=== PATIENT | female | born 1950 | race Caucasian/White ===

== ENCOUNTER 2021-11-14 10:13 | Outpatient (REF) | payer OTHER, MEDICARE, SELFPAY ==
[2021-11-14 13:18] LABS: MANUAL DIFF FLAG NO
[2021-11-14 13:28] LABS: Basophils Absolute Auto 0.1 X10*3/uL (0.0-0.2); Basophils Percent Auto 0.8 % (0-2); Eosinophils Absolute Auto 0.2 X10*3/uL (0.0-0.4); Eosinophils Percent Auto 3.5 % (0-4); Hematocrit 39.2 % (37.0-47.0); Imm Gran Abs Auto 0.01 X10*3/uL (0.00-0.03); Imm Gran Pct Auto 0.2 % (0.0-0.4); Lymphocytes Absolute Auto 2.1 X10*3/uL (1.2-4.9); Lymphocytes Percent Auto 32.2 % (20-40); Mean Corpuscular HGB Conc 30.6 g/dl (31.0-35.0); Mean Corpuscular Hemoglobin 27.6 pg (27.0-33.0); Mean Corpuscular Volume 90.3 fL (80.0-98.0); Mean Platelet Volume 12.7 fL (9.4-12.3); Monocytes Absolute Auto 0.6 X10*3/uL (0.1-1.2); Monocytes Percent Auto 8.6 % (2-11); Neutrophils Absolute Auto 3.6 x10*3/uL (2.0-8.3); Neutrophils Percent Auto 54.7 % (45-73); Platelet Count 215 X10*3/uL (160-400); Red Blood Count 4.34 X10*6/uL (4.20-5.50); Red Cell Distribution Width 12.6 % (11.0-16.0); White Blood Count 6.5 X10*3/uL (4.8-10.8)
[2021-11-14 13:49] LABS: Alanine Aminotransferase 20 U/L (0-31); Albumin Level 4.2 g/dL (3.5-5.0); Alkaline Phosphatase 114 U/L (39-117); Anion Gap 14 (12-20); Aspartate Amino Transferase 19 U/L (5-31); Bilirubin Total 0.3 mg/dL (0.0-1.0); Blood Urea Nitrogen 16 mg/dL (9-16); Calcium 9.9 mg/dL (8.4-10.2); Carbon Dioxide 27 mmol/L (22-29); Chloride 106 mmol/L (96-108); Cholesterol 187 mg/dL; Estimated Glomerular Filt Rate > 60; Glucose Random 97 mg/dL (60-115); HDL Cholesterol 51 mg/dL; LDL Cholesterol Calculated 116 mg/dl; Potassium 4.7 mmol/L (3.3-5.1); Sodium 142 mmol/L (135-145); Total Protein 6.8 g/dL (6.5-8.0); Triglycerides 100 mg/dL
[2021-11-14 14:13] LABS: Thyroid Stimulating Hormone 1.69 uIU/mL (0.32-4.0); Vitamin D 25-OH Total 38.9 ng/mL (>30)
[2021-11-14 14:15] LABS: Vitamin B12 284 pg/mL (200-900)
== END 2021-11-14 10:14 | disposition home or self-care (01) ==
LOC: HO.10HDL 10:13
PROVIDERS: Visit Provider Internal Medicine
DX: Z00.00 Encounter for general adult medical examination without abnormal findings (principal); Z13.31 Encounter for screening for depression; Z86.010 Personal history of colon polyps; Z80.0 Family history of malignant neoplasm of digestive organs
CPT/HCPCS: 36415; 80053; 80061; 82306; 82607; 84443; 85025

== ENCOUNTER 2021-12-08 15:46 | Outpatient (REF) | payer MEDICARE, SELFPAY ==
--- NOTE | ~2021-12-08 | MM_ITS ---
EXAMINATION: MM SCREENING DIGITAL BREAST TOMOSYNTHESIS, BILATERAL CLINICAL INFORMATION: Screening. Asymptomatic. Prior outside mammography 2018 from [place] unavailable. The lifetime risk of breast cancer based on the Tyrer-Cuzick Model is 7%. COMPARISON: None. TECHNIQUE: Digital breast tomosynthesis is performed in both the craniocaudal and mediolateral oblique views along with computer-aided detection (CAD). Synthesized 2D images are generated from the tomosynthesis. FINDINGS: There are scattered areas of fibroglandular density (ACR BI-RADS breast composition Category b). The right breast has 3 dominant nodule with smooth margins, largest anterior lower inner quadrant 1.2 cm. There are 2 7 mm nodule mid lower inner quadrant and anterior 12:00 position, respectively. The left breast shows no dominant nodularity. Neither breast shows architectural abnormality. The axilla and skin contours are unremarkable. There are bilateral calcifications. Left breast has loosely grouped relatively coarse calcifications mid upper outer quadrant. Right breast has regional relatively coarse calcifications mid upper outer quadrant and mid central breast. In the absence of prior outside mammography for comparison, patient will be recalled for additional imaging. MM/MM tomosynthesis screening BI IMPRESSION: Right: -3 dominant smooth nodules. -Calcifications central mid and regional upper outer. Left: -Loosely grouped calcifications mid upper outer. ASSESSMENT: BI-RADS 0: Incomplete - Need Additional Imaging Evaluation RECOMMENDATION: 1. Comparison with prior outside mammography if available. 2. Otherwise, bilateral magnification views and targeted right ultrasound. 3. Radiology department staff will contact the patient for follow up. This patient's information was entered into a reminder system with a target due date for their next mammogram.
== END 2021-12-08 15:47 | disposition home or self-care (01) ==
LOC: HO.MAMMO 15:46
PROVIDERS: PCP Internal Medicine; Visit Provider Internal Medicine
DX: Z12.31 Encounter for screening mammogram for malignant neoplasm of breast (principal)
CPT/HCPCS: 77063; 77067

== ENCOUNTER 2021-12-22 13:32 | Outpatient (REF) | payer MEDICARE, SELFPAY ==
--- NOTE | ~2021-12-22 | MM_ITS ---
EXAMINATION: MM DIAGNOSTIC DIGITAL BREAST TOMOSYNTHESIS, BILATERAL US DIAGNOSTIC ULTRASOUND BREAST, RIGHT CLINICAL INFORMATION: Recall from [facility] for bilateral calcifications and 3 nodules right breast. Prior outside mammography from [place] no longer available. Age 71. TC score 7%. COMPARISON: Mammography: 12/08/2021 TECHNIQUE: Digital breast tomosynthesis is performed. 2D images are generated from the tomosynthesis. The following views are obtained: Bilateral magnification CC, bilateral magnification ML x2. Ultrasound right breast is targeted to the areas of nodularity noted on recent mammography 12:00 through 5:00 position. Grayscale imaging and color Doppler are performed without and with harmonics. FINDINGS: There are scattered areas of fibroglandular density (ACR BI-RADS breast composition Category b). The additional magnification views show similar appearing grouped relatively coarse calcifications mid upper outer left breast and more numerous regional calcifications upper outer right breast. These may be related to fibroadenomatous changes. In the absence of available prior studies, short interval follow-up mammography is recommended to include bilateral magnification views. Ultrasound right breast demonstrates circumscribed smooth isoechoic nodule 12:00 position 3 cm from nipple measuring approximately 0.6 x 0.4 cm. There is a similar appearing smooth isoechoic nodule 5:00 position 2 cm from nipple measuring 1.2 x 0.6 cm. Neither nodule shows posterior shadowing. The third nodule noted on screening mid lower inner right breast mammography is not identified with ultrasound. It has benign-appearing circumscribed margins on recent imaging. The right breast nodules are probably benign and will be reassessed in 6 months at time of follow-up mammography. Results are discussed with the patient and family at time of visit, using an tire recapping machine operator. MM/MM added views BI IMPRESSION: -Probable benign calcifications bilateral breasts, possibly fibroadenomatous changes. -Benign-appearing nodularity right breast, 2 nodules identified on ultrasound with circumscribed margins. The third is ultrasound occult. ASSESSMENT: BI-RADS 3: Probably Benign RECOMMENDATION: Diagnostic bilateral mammography in 6 months. This patient's information was entered into a reminder system with a target due date for their next mammogram.
== END 2021-12-22 13:33 | disposition home or self-care (01) ==
LOC: HO.MAMMO 13:32
PROVIDERS: PCP Internal Medicine; Visit Provider Internal Medicine
DX: R92.1 Mammographic calcification found on diagnostic imaging of breast (principal); R92.2 Inconclusive mammogram
CPT/HCPCS: 76642; 77066

== ENCOUNTER 2022-06-22 08:33 | Outpatient (REF) | payer MEDICARE, SELFPAY ==
--- NOTE | ~2022-06-22 | MM_ITS ---
EXAMINATION: MM DIAGNOSTIC DIGITAL BREAST TOMOSYNTHESIS, BILATERAL CLINICAL INFORMATION: Bilateral short interval follow-up for probable benign bilateral calcifications and nodularity right breast on new baseline. The lifetime risk of breast cancer based on the Tyrer-Cuzick Model is 7%. COMPARISON: Mammography: 12/22/2021, 12/08/2021 (BI-RADS 0, new baseline), right breast ultrasound 12/22/2021. TECHNIQUE: Digital breast tomosynthesis is performed in both the craniocaudal and mediolateral oblique views along with computer-aided detection (CAD). Synthesized 2D images are generated from the tomosynthesis. Additional magnification views are obtained: Right CC x2, left CC, bilateral ML. FINDINGS: There are scattered areas of fibroglandular density (ACR BI-RADS breast composition Category b). Breast parenchymal pattern appears similar to prior new baseline exam. There is scattered fibronodular pattern and stable right breast nodularity. No developing density or architectural abnormality. The axilla and skin contours are unremarkable. Bilateral calcifications for follow-up are similar to prior diagnostic exam. There are no increasing calcifications or interval pleomorphic types or ductal distribution. Bilateral breast will be reassessed again to include magnification views at time of annual mammography, due in 6 months. Results are provided to the patient at time of visit by the technologist. MM/MM tomosynthesis diagnostic BI IMPRESSION: No significant changes from prior studies. ASSESSMENT: BI-RADS 3: Probably Benign RECOMMENDATION: Diagnostic mammography at time of annual bilateral mammography, due in 6 months. This patient's information was entered into a reminder system with a target due date for their next mammogram.
== END 2022-06-22 08:34 | disposition home or self-care (01) ==
LOC: HO.MAMMO 08:33
PROVIDERS: Visit Provider Internal Medicine
DX: R92.1 Mammographic calcification found on diagnostic imaging of breast (principal)
CPT/HCPCS: 77062; 77066

== ENCOUNTER 2023-02-12 12:56 | Outpatient (REF) | payer MEDICARE, SELFPAY ==
--- NOTE | ~2023-02-12 | US_ITS ---
EXAMINATION: MM DIAGNOSTIC DIGITAL BREAST TOMOSYNTHESIS, BILATERAL US BREAST LIMITED, RIGHT MAMMOGRAPHY: CLINICAL INFORMATION: Follow-up nodules from 05/24/2021 right breast. Follow-up probably benign calcifications both breasts last imaged 06/22/2022. COMPARISON: Mammography: 06/22/2022, 12/22/2021, 12/08/2021. 12/22/2021 right breast ultrasound. TECHNIQUE: Digital breast tomosynthesis is performed in both the craniocaudal and mediolateral oblique views along with computer-aided detection (CAD). Synthesized 2D images are generated from the tomosynthesis. In addition, 2-D spot magnification CC x2 and ML x2 views were obtained. FINDINGS: There are scattered areas of fibroglandular density (ACR BI-RADS breast composition Category b). Bilateral calcifications for follow-up are similar to prior diagnostic exams. There are no increasing calcifications, aggressive change, new or changing calcifications. Right-sided nodular opacities in the anterior right breast are stable on mammography, one at 12:00, 3 cm from the nipple, a slightly larger 1 at 5:00 approximately 2 cm from the nipple, and the third in the lower medial right breast middle one third was not seen on prior ultrasound but is grossly stable on mammography. Breast parenchymal pattern appears similar to prior new baseline exam. There is scattered fibronodular pattern and stable right breast nodularity. No developing density or architectural abnormality. The axilla and skin contours are unremarkable. ULTRASOUND: CLINICAL INFORMATION: Follow-up right breast nodules. COMPARISON: 12/22/2021. TECHNIQUE: Targeted sonographic evaluation was performed using a high frequency linear transducer. Selected archived documentation. FINDINGS: RIGHT BREAST: There is a mass in the right breast at the 12:00 axis, 3 cm from the nipple, measuring 6 mm in diameter without change in morphology or appearance. This is stable over one year and remains probably benign. There is a second mass in the 5:00 axis right breast 2 cm from the nipple, measuring 1.0 x 0.9 x 0.5 cm without change in morphology or appearance. This is stable over one year and remains probably benign. The third asymmetry in the far inferior and medial right breast has no ultrasound correlate. It is stable on mammography. US/US breast RT limited mamm only IMPRESSION: There are no findings suspicious for malignancy in either breast. Probably benign calcifications in both breasts are stable over one year, and 1 year follow-up to document benignity recommended, to include standard magnification views. Probably benign nodules in the right breast, stable over one year, for which 1 year additional follow-up recommended to document stability and benignity. OVERALL ASSESSMENT: Mammography: BI-RADS 3 - Probably benign finding(s) - 6 month follow-up suggested Ultrasound: BI-RADS 3 - Probably benign finding(s) - 6 month follow-up suggested RECOMMENDATION: 6 Month F/U This patient's information was entered into a reminder system with a target due date for their next mammogram.
== END 2023-02-12 12:57 | disposition home or self-care (01) ==
LOC: HO.MAMMO 12:56
PROVIDERS: PCP Internal Medicine; Visit Provider Internal Medicine
DX: R92.1 Mammographic calcification found on diagnostic imaging of breast (principal)
CPT/HCPCS: 76642; 77062; 77066

== ENCOUNTER → 2023-02-12 13:00 | Outpatient (BNV) | payer MEDICARE, SELFPAY | PROVIDERS: PCP Internal Medicine; Visit Provider Radiology Diagnostic Radiology | DX: R92.1 Mammographic calcification found on diagnostic imaging of breast (principal) | CPT/HCPCS: 76642; 77062; 77066; G0279 ==

== ENCOUNTER 2023-04-10 09:00 | Outpatient (REF) | payer MEDICARE, SELFPAY ==
[2023-04-10 09:13] LABS: MANUAL DIFF FLAG NO
[2023-04-10 10:57] LABS: Basophils Absolute Auto 0.1 X10*3/uL (0.0-0.2); Basophils Percent Auto 0.8 % (0-2); Eosinophils Absolute Auto 0.2 X10*3/uL (0.0-0.4); Eosinophils Percent Auto 3.4 % (0-4); Hematocrit 40.1 % (37.0-47.0); Hemoglobin 12.2 g/dl (12.0-16.0); Imm Gran Abs Auto 0.02 X10*3/uL (0.00-0.03); Imm Gran Pct Auto 0.3 % (0.0-0.4); Lymphocytes Percent Auto 31.5 % (20-40); Mean Corpuscular HGB Conc 30.4 g/dl (31.0-35.0); Mean Corpuscular Hemoglobin 27.7 pg (27.0-33.0); Mean Corpuscular Volume 91.1 fL (80.0-98.0); Mean Platelet Volume 12.7 fL (9.4-12.3); Monocytes Absolute Auto 0.5 X10*3/uL (0.1-1.2); Monocytes Percent Auto 8.3 % (2-11); Neutrophils Absolute Auto 3.6 x10*3/uL (2.0-8.3); Neutrophils Percent Auto 55.7 % (45-73); Platelet Count 246 X10*3/uL (160-400); Red Cell Distribution Width 12.9 % (11.0-16.0); White Blood Count 6.4 X10*3/uL (4.8-10.8)
[2023-04-10 11:47] LABS: Alanine Aminotransferase 30 U/L (0-31); Albumin Level 4.2 g/dL (3.5-5.0); Alkaline Phosphatase 109 U/L (39-117); Anion Gap 11 (12-20); Aspartate Amino Transferase 29 U/L (5-31); Bilirubin Total 0.4 mg/dL (0.0-1.0); Blood Urea Nitrogen 13 mg/dL (9-16); Calcium 10.3 mg/dL (8.4-10.2); Carbon Dioxide 29 mmol/L (22-29); Chloride 107 mmol/L (96-108); Cholesterol 180 mg/dL (<200); Estimated Glomerular Filt Rate > 60; Glucose Random 106 mg/dL (60-115); HDL Cholesterol 50 mg/dL (>40); LDL Cholesterol Calculated 107 mg/dL (<100); Potassium 4.5 mmol/L (3.3-5.1); Sodium 142 mmol/L (135-145); Total Protein 7.3 g/dL (6.5-8.0); Triglycerides 118 mg/dL (<150)
[2023-04-10 12:07] LABS: Vitamin B12 330 pg/mL (200-900)
== END 2023-04-10 09:01 | disposition home or self-care (01) ==
LOC: HO.LAB 09:00
PROVIDERS: PCP Internal Medicine; Visit Provider Internal Medicine
DX: I10 Essential (primary) hypertension (principal); R92.8 Other abnormal and inconclusive findings on diagnostic imaging of breast; Z86.010 Personal history of colon polyps; Z80.0 Family history of malignant neoplasm of digestive organs
CPT/HCPCS: 36415; 80053; 80061; 82607; 85025

== ENCOUNTER 2023-07-02 08:27 | Outpatient (REF) | payer MEDICARE, SELFPAY ==
[2023-07-02 10:17] LABS: Alanine Aminotransferase 26 U/L (0-31); Albumin Level 4.1 g/dL (3.5-5.0); Alkaline Phosphatase 116 U/L (39-117); Anion Gap 11 (12-20); Aspartate Amino Transferase 25 U/L (5-31); Bilirubin Total 0.4 mg/dL (0.0-1.0); Blood Urea Nitrogen 22 mg/dL (9-16); Calcium 10.7 mg/dL (8.4-10.2); Carbon Dioxide 30 mmol/L (22-29); Chloride 105 mmol/L (96-108); Estimated Glomerular Filt Rate > 60; Glucose Random 113 mg/dL (60-115); Potassium 3.7 mmol/L (3.3-5.1); Sodium 142 mmol/L (135-145); Total Protein 7.2 g/dL (6.5-8.0)
== END 2023-07-02 08:28 | disposition home or self-care (01) ==
LOC: HO.LAB 08:27
PROVIDERS: PCP Internal Medicine; Visit Provider Internal Medicine
DX: I10 Essential (primary) hypertension (principal); Z80.0 Family history of malignant neoplasm of digestive organs
CPT/HCPCS: 36415; 80053

== ENCOUNTER 2024-01-08 08:33 | Outpatient (REF) | payer MEDICARE, SELFPAY ==
[2024-01-08 11:15] LABS: Alanine Aminotransferase 41 U/L (0-31); Albumin Level 4.1 g/dL (3.5-5.0); Alkaline Phosphatase 121 U/L (39-117); Anion Gap 11 (12-20); Aspartate Amino Transferase 33 U/L (5-31); Bilirubin Total 0.5 mg/dL (0.0-1.0); Blood Urea Nitrogen 14 mg/dL (9-16); Calcium 10.3 mg/dL (8.4-10.2); Carbon Dioxide 29 mmol/L (22-29); Chloride 105 mmol/L (96-108); Cholesterol 192 mg/dL (<200); Estimated Glomerular Filt Rate > 60; Glucose Random 148 mg/dL (60-115); HDL Cholesterol 60 mg/dL (>40); LDL Cholesterol Calculated 113 mg/dL (<100); Sodium 141 mmol/L (135-145); Total Protein 7.2 g/dL (6.5-8.0); Triglycerides 99 mg/dL (<150)
[2024-01-08 11:34] LABS: Vitamin D 25-OH Total 36.8 ng/mL (>30)
[2024-01-08 11:41] LABS: Parathyroid Hormone Intact 87.6 pg/mL (8.7-77.1)
== END 2024-01-08 08:34 | disposition home or self-care (01) ==
LOC: HO.10HDL 08:33
PROVIDERS: Visit Provider Internal Medicine
DX: E83.52 Hypercalcemia (principal); I10 Essential (primary) hypertension; M70.52 Other bursitis of knee, left knee; M75.42 Impingement syndrome of left shoulder
CPT/HCPCS: 36415; 80053; 80061; 82306; 83970

== ENCOUNTER 2024-04-05 10:09 | Outpatient (REF) | payer MEDICARE, SELFPAY ==
[2024-04-05 11:32] LABS: Alanine Aminotransferase 55 U/L (0-31); Albumin Level 4.4 g/dL (3.5-5.0); Alkaline Phosphatase 124 U/L (39-117); Anion Gap 14 (12-20); Bilirubin Total 0.7 mg/dL (0.0-1.0); Blood Urea Nitrogen 13 mg/dL (9-16); Calcium 10.7 mg/dL (8.4-10.2); Carbon Dioxide 27 mmol/L (22-29); Chloride 104 mmol/L (96-108); Estimated Glomerular Filt Rate > 60; Glucose Random 137 mg/dL (60-115); Potassium 4.2 mmol/L (3.3-5.1); Sodium 141 mmol/L (135-145); Total Protein 7.5 g/dL (6.5-8.0)
[2024-04-05 11:42] LABS: Aspartate Amino Transferase 48 U/L (5-31)
[2024-04-05 12:01] LABS: HBS Num1 0.11 mIU/mL (0-7.99); HBc Num1 0.05 S/CO (0.00-0.79); Hepatitis B Core Antibody Nonreactive (Nonreactive); Hepatitis B Surface Antigen Negative (Negative); ~HepC Num1 0.11 S/CO (0.00-0.79); ~Hepatitis B Surface Antibody NONREACTIVE (Nonreactive); ~Hepatitis C Antibody Nonreactive (Nonreactive)
== END 2024-04-05 10:10 | disposition home or self-care (01) ==
LOC: HO.LAB 10:09
PROVIDERS: PCP Internal Medicine; Visit Provider Internal Medicine
DX: E83.52 Hypercalcemia (principal); I10 Essential (primary) hypertension; M70.52 Other bursitis of knee, left knee; M75.42 Impingement syndrome of left shoulder; R74.01 Elevation of levels of liver transaminase levels
CPT/HCPCS: 36415; 80053; 83970; 84100; 86704; 86706; 86803; 87340

== ENCOUNTER 2024-05-26 14:51 | Outpatient (AMB) | payer MEDICARE, SELFPAY ==
--- NOTE | 2024-05-26 14:54 | MHC.OFFVIS ---
Vital Signs 05/26/24 14:55 05/26/24 15:36 Height 5 ft 4 in Weight 155 lb 10.342 oz BMI 26.7 BP 160/76 H 138/70 Blood Pressure Location Lt brachial Lt brachial Position Sitting Pulse 83 Pulse Source Pulse Oximeter Pulse Oximetry (%) 98 Oxygen Delivery Method Room Air Intake Visit Reasons: Hyperparathyroidism Intake Note: New patient present today for Hyper parathyroidism. 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 Chart review shows she has had an elevated calcium level since April 2023 and calcium level has been ranging anywhere from 10.3-10.7, with most recent labs on 04/05/24 when total calcium was 10.7 with albumin of 4.4, corrected calcium would be 10.3 mg/dL. Concurrent PTH was 105 picogram per mL, normal phosphorus of 3, normal kidney function, vitamin D from January 2024 was 36.8 when PTH was 87.6, calcium was 10.3 with albumin of 4.1, corrected calcium will be 10.2. Kidney stones : none Fractures : none Family history of kidney stones or calcium problems: none Dexa : 1 year ago in [place] : per patient was normal thinks taking vitamin D not sure how much, takes it daily for a few years No calcium supplements On losartan for blood pressure doesnt know how much, no other meds apparentlt Milk: sometimes, cheese: often, yogurt : no Denies increased urination, constipation, mental status changes, abdominal pain. Physical exam General: sitting comfortably in no acute distress HEENT: normocephalic/atraumatic, Neck: supple, symmetrical, no thyromegaly , no dorsocervical or supraclavicular fat pads Cardiac: normal heart sounds Pulm: normal breath sounds B/L, no added breath sounds Abd: not distended, no tenderness Extremities: no edema, no signs of myxedema Laboratory Tests 11/14/21 04/10/23 07/02/23 10:25 09:12 08:38 Creatinine Estimated GFR Calcium 10.3 H 10.7 H Albumin 4.2 4.2 4.1 25-OH Vitamin D Total 38.9 PTH Intact 01/08/24 04/05/24 08:40 10:23 Creatinine 0.77 Estimated GFR > 60 Calcium 10.3 H 10.7 H Albumin 4.1 4.4 25-OH Vitamin D Total 36.8 PTH Intact 87.6 H 105.0 H PFSH Medical History (Updated 05/26/24 @ 15:17 by Florence Dowling MD) Hyperparathyroidism Surgical History (Updated 05/26/24 @ 15:02 by SEDA Zepeda) History of cholecystectomy History of tubal ligation Family History (Updated 05/26/24 @ 15:03 by SEDA Zepeda) Mother Cancer Diabetes Hypertension Father Cancer Social History Alcohol intake: current Alcohol intake frequency: former alcohol drinker Patient Tobacco Use Status: Never used Tobacco Physical Exam Vital Signs: Last Vital Signs Pulse 83 05/26/24 14:55 BP 160/76 H 05/26/24 14:55 Pulse Ox 98 05/26/24 14:55 Oxygen Delivery Method Room Air 05/26/24 14:55 BMI result Body Mass Index 26.7 Assessment & Plan Assessment & Plan (1) Hyperparathyroidism: Code(s): E21.3 - Hyperparathyroidism, unspecified Category: Medical Plan: 73-year-old female coming in today for 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 Chart review shows she has had an elevated calcium level since April 2023 and calcium level has been ranging anywhere from 10.3-10.7, with most recent labs on 04/05/24 when total calcium was 10.7 with albumin of 4.4, corrected calcium would be 10.3 mg/dL. Concurrent PTH was 105 picogram per mL, normal phosphorus of 3, normal kidney function, vitamin D from January 2024 was 36.8 when PTH was 87.6, calcium was 10.3 with albumin of 4.1, corrected calcium will be 10.2. She is not on any calcium supplementation to suggest hyperalimentation. Normal kidney function and vitamin-D rules out secondary hyperparathyroidism. Given calcium levels were normal prior to 2023, unlikely FH H. based on labs patient has primary hyperparathyroidism. We will obtain a 24 hour urine collection to see if patient needs surgical criteria however at this point kidney function is normal, her age is greater than 50, no history of fractures or osteoporosis, we will obtain a bone density and calcium levels are less than 1 mg/dL above the upper limit of normal. Without current complications, monitoring may remain appropriate depending on lab results. A follow-up visit in six weeks will provide an opportunity to review results and determine any necessary interventions for hypercalcemia. I discussed the nature of the patient?s hypercalcemia, indicating that current management involves further diagnostic efforts to determine the presence of any associated complications. A 24-hour urine collection are ordered, alongside a blood tests, to better understand the case. I also explained the role of the bone density scan. A follow-up meeting is scheduled in six weeks to assess the test results and decide whether to continue monitoring or initiate intervention for elevated calcium levels. Plan: - Complete a 24-hour urine collection as instructed before returning to the lab. - do blood test with serum calcium, BMP, PTH, ionized calcium, albumin, magnesium and phosphorus same day as you given the urine - ordered bone density scan including forearm given primary hyperparathyroidism - Bring all medication bottles to the next appointment. - Return for follow-up in six weeks to discuss lab results and treatment options. Patient was informed and verbally consented to the use of an ambient scribe for clinic note documentation during this visit. Note: Blood pressure initially noted to be slightly elevated during the visit, I rechecked in got improved reading. Told the patient to keep an eye on her blood pressure and discuss with her primary care physician if remains elevated. Plan I spent 45 minutes in reviewing the record, seeing the patient and documenting in the medical record. Orders: Orders XR DEXA appendicular skeleton Today E21.3 - Hyperparathyroidism, unspecified Albumin Level Today E21.3 - Hyperparathyroidism, unspecified Calcium Today E21.3 - Hyperparathyroidism, unspecified Creatinine, 24 Hr Group Today E21.3 - Hyperparathyroidism, unspecified Calcium, Ionized Today E21.3 - Hyperparathyroidism, unspecified Phosphorus Today E21.3 - Hyperparathyroidism, unspecified Parathyroid Hormone Intact Today E21.3 - Hyperparathyroidism, unspecified Vitamin D 25-OH Total Today E21.3 - Hyperparathyroidism, unspecified Basic Metabolic Panel Today E21.3 - Hyperparathyroidism, unspecified Magnesium Today E21.3 - Hyperparathyroidism, unspecified Calcium, 24 Hr Ur Today E21.3 - Hyperparathyroidism, unspecified Patient Instructions: Do bone density scan, someone is going to call you to schedule this. Do 24 hour urine evaluation, and at the same time that you had in the urine collection, please have blood drawn. 24 hr urine collection instructions You have been asked to collect your urine for 24 hours to assess for calcium excretion. You must choose a 24 hour period of time when you will be home. The morning of the first day, DISCARD the FIRST morning void and then note the time. You will collect every single void from then on for 24 hours. For example, if you wake up at 6am and urinate, flush down that void. You will then collect every drop of urine all day and all night through 6am the following day. You will urinate one last time at 6am for the collection. The jug of urine must be kept in the refrigerator until you bring it to the lab. Follow up in 6 weeks to discuss results Bring all your medication bottles to the next visit Realice dimitry exploraci?n de densidad ?sea, alguien lo llamar? para programar esto. Realice dimitry evaluaci?n de orina de 24 horas y, al mismo tiempo que realiz? la recolecci?n de orina, le extraigan vu. Instrucciones para la recolecci?n de orina de 24 horas. Se le melgoza pedido que recolecte orina keyon 24 horas para evaluar la excreci?n de calcio. Debe elegir un per?odo de 24 horas en el que estar? en casa. La ma?jese del primer d?a, DESCARTE el PRIMER vac?o de la ma?jese y luego anote la hora. A partir de cade momento, recolectar?s todos los vac?os keyon 24 horas. Por ejemplo, si te despiertas a las 6 de la ma?jese y orinas, monica cade vac?o. Luego recolectar? cada gota de orina keyon todo el d?a y toda la noche hasta las 6 a.m. del d?a siguiente. Orinar?s por ?ltima vez a las 6 a. m. para la recolecci?n. El frasco de orina debe conservarse en el frigor?fico hasta lerner llegada al laboratorio. Seguimiento en 6 semanas para discutir los resultados. Lleve todos lashaun frascos de medicamentos a la pr?xima visita. Coding Level of Care Code New Pt Level 4 (66559) Diagnoses Hyperparathyroidism E21.3 Time Spent (min) 45
[2024-05-26 14:55] VITALS: BP 160/76; PULSE 83; O2SAT 98; BMI 26.7
[2024-05-26 15:36] VITALS: BP 138/70
== END 2024-05-26 15:33 | disposition home or self-care (01) ==
PROVIDERS: PCP Internal Medicine; Visit Provider Student in an Organized Health Care Education/Training Program
DX: E21.3 Hyperparathyroidism, unspecified (principal)
CPT/HCPCS: 99204

== ENCOUNTER → 2024-05-26 14:51 | Outpatient (BNVA) | payer MEDICARE, SELFPAY | PROVIDERS: PCP Internal Medicine; Visit Provider Student in an Organized Health Care Education/Training Program | DX: E21.3 Hyperparathyroidism, unspecified (principal) | CPT/HCPCS: 99202 ==

== ENCOUNTER 2024-06-14 10:12 | Outpatient (REF) | payer MEDICARE, SELFPAY ==
[2024-06-14 11:49] LABS: Parathyroid Hormone Intact 104.9 pg/mL (8.7-77.1)
[2024-06-14 11:53] LABS: Albumin Level 4.2 g/dL (3.5-5.0); Anion Gap 11 (12-20); Blood Urea Nitrogen 13 mg/dL (9-16); Calcium 10.2 mg/dL (8.4-10.2); Carbon Dioxide 28 mmol/L (22-29); Chloride 106 mmol/L (96-108); Estimated Glomerular Filt Rate > 60; Glucose Random 116 mg/dL (60-115); Magnesium 2.2 mg/dL (1.6-2.6); Phosphorus 2.8 mg/dL (2.7-4.5); Potassium 3.9 mmol/L (3.3-5.1); Sodium 141 mmol/L (135-145)
[2024-06-14 12:10] LABS: Vitamin D 25-OH Total 27.8 ng/mL (>30)
[2024-06-16 17:08] LABS: Calcium, Ionized 5.4 mg/dL (4.7-5.5)
== END 2024-06-14 10:13 | disposition home or self-care (01) ==
LOC: HO.LAB 10:12
PROVIDERS: PCP Internal Medicine; Visit Provider Student in an Organized Health Care Education/Training Program
DX: E21.3 Hyperparathyroidism, unspecified (principal)
CPT/HCPCS: 36415; 80048; 82040; 82306; 82330; 83735; 83970; 84100

== ENCOUNTER 2024-06-27 08:34 | Outpatient (REF) | payer MEDICARE, SELFPAY ==
[2024-06-27 09:28] LABS: Total Volume 24 Hour Urine 1400 mL
[2024-06-27 09:29] LABS: Creatinine, mg/dL 71.81
[2024-06-30 17:59] LABS: Calcium, 24 Hr Urine 213 mg/24 h; Calcium/Creatinine Ratio 217 mg/g creat (30-275); Creatinine 24Hr Urine 0.98 g/24 h (0.50-2.15)
== END 2024-06-27 08:35 | disposition home or self-care (01) ==
LOC: HO.LNP 08:34
PROVIDERS: Visit Provider Student in an Organized Health Care Education/Training Program
DX: E21.3 Hyperparathyroidism, unspecified (principal)
CPT/HCPCS: 82340; 82570

== ENCOUNTER 2024-06-30 09:26 | Outpatient (REF) | payer MEDICARE, SELFPAY ==
--- NOTE | ~2024-06-30 | US_ITS ---
EXAMINATION: MM DIAGNOSTIC DIGITAL BREAST TOMOSYNTHESIS, BILATERAL Right limited ultrasound. CLINICAL INFORMATION: Two-year follow-up for bilateral coarse calcifications and oval masses in the right breast on mammogram and ultrasound. COMPARISON: Mammography: Comparison is made with relevant prior exams. TECHNIQUE: Digital breast mammography with tomosynthesis is performed in both the craniocaudal and mediolateral oblique views along with computer-aided detection (CAD). FINDINGS: There are scattered areas of fibroglandular density (ACR BI-RADS breast composition Category b). Bilateral coarse heterogeneous calcifications are not significantly changed on magnification views dating back for more than 2 years and therefore benign. Three Circumscribed oval masses in the lower inner and upper central right breast are not significantly changed on mammography dating back for 2 years. No other suspicious abnormalities. Targeted color Doppler ultrasound again demonstrates a hypoechoic oval solid mass at 12:00 3 cm from nipple measuring 4 x 7 x 4 mm given differences in measuring technique is not significantly changed from priors dating back for more than 2 years and therefore benign. Targeted color Doppler ultrasound at 5:00 2 cm from the nipple again demonstrates a hypoechoic oval circumscribed solid mass measuring 10 x 5 x 11 mm not significantly changed from prior ultrasounds dating back for more than 2 years and therefore benign.. Results are provided to the patient at time of visit by the technologist. US/US breast LT limited mamm only IMPRESSION: 1. Bilateral grouped heterogeneous coarse calcifications stable on prior magnification views dating back for more than 2 years and therefore benign. 2. Circumscribed oval masses in the right breast are not significantly changed from prior mammograms and 2 are seen on prior ultrasounds dating back for more than 2 years and therefore benign. ASSESSMENT: BI-RADS BI-RADS 2 - Benign Findings RECOMMENDATION: 1 year F/U This patient's information was entered into a reminder system with a target due date for their next mammogram. Electronically signed by: Beba Christine DO 06/30/2024 10:48 AM EDT
== END 2024-06-30 09:27 | disposition home or self-care (01) ==
LOC: HO.MAMMO 09:26
PROVIDERS: PCP Internal Medicine; Visit Provider Internal Medicine
DX: R92.1 Mammographic calcification found on diagnostic imaging of breast (principal)
CPT/HCPCS: 76642; 77062; 77066

== ENCOUNTER → 2024-06-30 09:30 | Outpatient (BNV) | payer MEDICARE, SELFPAY | PROVIDERS: PCP Internal Medicine; Visit Provider Internal Medicine | DX: R92.1 Mammographic calcification found on diagnostic imaging of breast (principal) | CPT/HCPCS: 76642; 77066; G0279 ==